=== PATIENT | male | born 1995 | race African-American/Black ===

== ENCOUNTER 2018-01-11 14:50 | Emergency (ER) | payer SELFPAY ==
[~2018-01-11] VITALS: Ht 167.6 cm; Wt 54.5 kg
[2018-01-11 16:45] VITALS: BP 115/79
== END 2018-01-11 17:13 | disposition home or self-care (01) ==
LOC: EMS 14:53
DX: S29.011A Strain of muscle and tendon of front wall of thorax, initial encounter (principal); B36.0 Pityriasis versicolor; F17.210 Nicotine dependence, cigarettes, uncomplicated; X50.0XXA Overexertion from strenuous movement or load, initial encounter; Y93.67 Activity, basketball; Y92.39 Other specified sports and athletic area as the place of occurrence of the external cause; Y99.8 Other external cause status
CPT/HCPCS: 93005; 99284; 99406